=== PATIENT | male | born 1950 | race Hispanic/Latino ===

== ENCOUNTER → 2022-05-24 | Day surgery (SDC) | payer MEDICARE ==
[2022-05-21 09:13] LABS: BASOPHILS % 0.7 % (0.0-1.0); EOSINOPHILS # (AUTO) 0.2 (0.0-0.4); EOSINOPHILS % 4.1 % (0.0-6.0); HEMATOCRIT 36.6 % (38.2-49.6); HEMOGLOBIN 12.5 g/dL (14.0-18.0); LYMPHOCYTES # (AUTO) 1.2 (1.0-3.2); LYMPHOCYTES % 27.8 % (18.0-39.1); MEAN CORPUSCULAR HEMOGLOBIN 32.5 pg (28-32); MEAN CORPUSCULAR HGB CONC 34.2 g/dL (31-35); MEAN CORPUSCULAR VOLUME 95.1 fL (81-99); MONOCYTES # (AUTO) 0.5 (0.2-0.8); MONOCYTES % 12.9 % (4.4-11.3); NEUTROPHILS # (AUTO) 2.3 (2.1-6.9); NEUTROPHILS % 54.3 % (38.7-80.0); PLATELET COUNT 144 x10e3/uL (140-360); RED BLOOD COUNT 3.85 x10e6/uL (4.3-5.7)
[~2022-05-24] MED LIST: ACETAMINOPHEN325 M1 PO; ASPIRIN81 MG PO; FENTANYL CITRATE/PF 100MCG/2 ML INJ ONE; HYOSCYAMINE SULFATE 0.5 MG/ML INJ ONE; MIDAZOLAM HCL 2 MG/2 ML VIAL ONE; PROPOFOL IV EMULSION 10 MG/ML 20 ML VIAL ONE
[2022-05-24 16:00] VITALS: BP 112/72
== END | disposition home or self-care (01) ==
LOC: OR 06:12
PROVIDERS: ATTEND Internal Medicine Gastroenterology
DX: D50.9 Iron deficiency anemia, unspecified (principal); K63.5 Polyp of colon; K29.50 Unspecified chronic gastritis without bleeding; B96.81 Helicobacter pylori [H. pylori] as the cause of diseases classified elsewhere; K20.90 Esophagitis, unspecified without bleeding; K44.9 Diaphragmatic hernia without obstruction or gangrene; K64.8 Other hemorrhoids; Z01.810 Encounter for preprocedural cardiovascular examination; Z01.812 Encounter for preprocedural laboratory examination; Z20.822 Contact with and (suspected) exposure to COVID-19; Z79.82 Long term (current) use of aspirin
CPT/HCPCS: 0223U; 36415; 43239; 45385; 85025; 93005; C9113; J1980; J2250; J2704; J3010; 45378; 45380

== ENCOUNTER 2022-05-28 06:00 | Observation (INO) | payer MEDICARE ==
[~2022-05-28] VITALS: Ht 167.6 cm; Wt 82.1 kg
[~2022-05-28 06:00] MED LIST changes: -ASPIRIN81 MG PO; -FENTANYL CITRATE/PF 100MCG/2 ML INJ ONE; -HYOSCYAMINE SULFATE 0.5 MG/ML INJ ONE; -MIDAZOLAM HCL 2 MG/2 ML VIAL ONE; -PROPOFOL IV EMULSION 10 MG/ML 20 ML VIAL ONE
[2022-05-28] MEDS ORDERED: GABAPENTIN 300 MG CAP ONE (06:07)
[2022-05-28] MEDS ORDERED: CELECOXIB 200 MG CAP ONE (06:07)
[2022-05-28] MEDS ORDERED: DEXAMETHASONE SOD PHOS 10 MG/1 ML VIAL ONE (06:07)
[2022-05-28] MEDS ORDERED: SODIUM CHLORIDE 0.9% 500ML 500 ML ONE (06:29)
[2022-05-28] MEDS ORDERED: Vancomycin IV 1,000 MG ONE (06:30)
[2022-05-28] MEDS ORDERED: TRANEXAMIC ACID 20 ML ONE (06:30)
[2022-05-28] MEDS ORDERED: ROPIVACAINE 246.25 MG, EPINEPHRINE HCL 1:1000 1ML 0.5 MG, CLONIDINE HCL 0.08 MG, KETORO... INJ ONE ×5 (08:00)
[2022-05-28] MEDS ORDERED: DIPHENHYDRAMINE HCL INJ 50 MG/ML VIAL IV PRN (08:30)
[2022-05-28] MEDS ORDERED: ONDANSETRON HCL INJ 2MG/ML 2ML 2 MG/ML VIAL IV PRN (08:30)
[2022-05-28] MEDS ORDERED: HYDROCODONE/APAP 5MG-325MG TAB PO PRN (08:30)
[2022-05-28] MEDS ORDERED: DOCUSATE SODIUM 100 MG CAP PO PRN (08:30)
[2022-05-28] MEDS ORDERED: KETOROLAC TROMETHAMINE 30 MG/ML VIAL IV PRN (08:30)
[2022-05-28] MEDS ORDERED: ACETAMINOPHEN 650 MG SUPP PR PRN (08:30)
[2022-05-28] MEDS ORDERED: ZOLPIDEM TARTRATE 5 MG TAB PO PRN (08:30)
[2022-05-28] MEDS ORDERED: FENTANYL CITRATE/PF 100MCG/2 ML INJ ONE ×2 (09:07→12:40)
[2022-05-28 10:15] VITALS: BP 135/71
[2022-05-28 10:28] VITALS: BP 135/71
[2022-05-28 10:41] VITALS: BP 135/71
[2022-05-28] MEDS: SODIUM CHLORIDE 0.9% 1000ML 1,000 ML IV SCH ×2 (11:00→20:40)
[2022-05-28] MEDS: ASPIRIN 325 MG TAB PO SCH ×2 (11:00→16:28)
[2022-05-28] MEDS ORDERED: GLYCOPYRROLATE INJ 0.2 MG/ML VIAL ONE (12:20)
[2022-05-28] MEDS ORDERED: LIDOCAINE HCL 2% LOCAL INJ 5 ML SDV VIAL INJ ONE (12:20)
[2022-05-28] MEDS ORDERED: POVIDONE IODINE 0.05% 0.05 % ML PO ONE (12:20)
[2022-05-28] MEDS ORDERED: ACETAMINOPHEN 1000 MG/100 ML IV ONE (12:20)
[2022-05-28] MEDS ORDERED: ONDANSETRON HCL INJ 2MG/ML 2ML 2 MG/ML VIAL ONE (12:20)
[2022-05-28] MEDS ORDERED: EPHEDRINE SULFATE INJ 50 MG/ML VIAL ONE (12:20)
[2022-05-28] MEDS ORDERED: PROPOFOL IV EMULSION 10 MG/ML 20 ML VIAL ONE (12:20)
[2022-05-28] MEDS ORDERED: SEVOFLURANE INHAL SOLN 250 ML PEN BTL ONE (12:20)
[2022-05-28] MEDS ORDERED: ROPIVACAINE 0.5% 5 MG/ML 30 ML SDV ONE (12:36)
[2022-05-28] MEDS: HYDROCODONE/APAP 7.5MG-325MG 1 EA TAB PO PRN ×2 (13:05→20:55)
[2022-05-28 16:00] VITALS: BP 135/65
[2022-05-28] MEDS: CELECOXIB 200 MG CAP PO SCH (16:28)
[2022-05-28 20:00] VITALS: BP 128/66
[2022-05-28 21:00] VITALS: BP 135/65
[2022-05-29] VITALS: BP 120/64
[2022-05-29] MEDS: SODIUM CHLORIDE 0.9% 1000ML 1,000 ML IV SCH (02:59)
[2022-05-29 04:00] VITALS: BP 129/60
[2022-05-29 04:55] LABS: HEMATOCRIT 31.3 % (38.2-49.6); HEMOGLOBIN 11.2 g/dL (14.0-18.0)
[2022-05-29] MEDS: HYDROCODONE/APAP 7.5MG-325MG 1 EA TAB PO PRN ×2 (06:03→09:17)
[2022-05-29 07:20] VITALS: BP 126/62
[2022-05-29 08:09] VITALS: BP 126/62
[2022-05-29] MEDS ORDERED: ACETAMINOPHEN 1000 MG/100 ML IV PRN (08:30)
[2022-05-29] MEDS: ASPIRIN 325 MG TAB PO SCH (08:42)
[2022-05-29] MEDS: CELECOXIB 200 MG CAP PO SCH (08:43)
[2022-05-29] MEDS ORDERED: ONDANSETRON HCL 4 MG ORAL DISINTEGRATING TAB PO PRN (11:45)
[2022-05-29 12:01] VITALS: BP 102/55
[2022-05-29] MEDS ORDERED: ASPIRIN81 MG PO (13:00)
== END 2022-05-29 14:40 | disposition home or self-care (01) ==
LOC: OR 06:00 → PACU V 08:23 → MED/SURG 10:15
PROVIDERS: ADMIT Specialist; ATTEND Specialist
DX: M17.12 Unilateral primary osteoarthritis, left knee (principal); E66.9 Obesity, unspecified; Z68.29 Body mass index [BMI] 29.0-29.9, adult; D64.9 Anemia, unspecified; R00.1 Bradycardia, unspecified; Z01.812 Encounter for preprocedural laboratory examination; Z01.818 Encounter for other preprocedural examination; Z20.822 Contact with and (suspected) exposure to COVID-19
CPT/HCPCS: 0223U; 27447; 36415 ×2; 71046; 73560; 85014; 85018; 86850; 86900; 86920; 94799 ×2; 96361 ×2; 97110; 97116 ×3; 97162; 97530 ×2; 99251; C1713 ×3; C1776 ×2; G0378 ×2; J0131; J0171; J0690 ×2; J1100; J1885; J2001; J2405; J2704; J2795; J3010; J3370; J7030 ×2; J7040